=== PATIENT | female | born 1985 | race African-American/Black ===

== ENCOUNTER → 2023-06-15 13:37 | Outpatient (AMB) | payer OTHER, SELFPAY ==
--- NOTE | 2023-06-15 14:16 | MHC.OFFWIV ---
Intake Intake Visit Reasons: EP, sore throat, congestion ([phone]) Intake Note: pt is here today for sore throat and congestion started sunday Patient Tobacco Use Status: Never used Tobacco Is last menstrual period known: Yes Patient : No Allergies No Known Allergies Allergy (Verified 06/15/23 14:28) Do you need a note to return to daycare/school/sports/work: Yes HPI HPI Comments History of Present Illness Details Patient is a 37yo F who presents to office with cough She said ongoing for a few days Minimal congestion without sinus pressure + chills/sweats without fever No ear pain + ST and cough No CP Has been using inhaler without relief + exposure to covid at work; she is a [employer] COVID tests have been negative at home [facility] Social History (System 06/13/23 @ 15:20 by Deepali Escalera) Patient Tobacco Use Status: Never used Tobacco Review of Systems Const Denies body aches, Reports chills, Reports fatigue, Denies fever(s) and Denies headache(s) ENT Denies dizziness, Denies otalgia, Denies headache(s), Reports nasal congestion, Denies sinus pain, Denies sinus pressure and Reports sore throat Card Denies chest pain Resp Denies chest congestion, Reports cough, Denies hemoptysis and Denies excessive phlegm production GI Denies abdominal pain Neuro Denies confusion, Denies dizziness and Denies headache(s) Psych Denies confusion Endo Reports fatigue Physical Exam Vital Signs: General: Non-toxic, NAD. Speaking full sentences. Skin: Warm dry throughout Eye: EOMI HENT: Airway patent. Uvula midline. No pharyngeal erythema or edema. 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 +clear rhinorrhea Bilateral canals clear. TM non-erythematous, non-bulging. No TM perforation or hemotympanum noted. Respiratory: CTA bilaterally. No wheezes, rales or rhonchi Cardiac: RRR. No murmur MSK: Full ROM extremities. Neurology: A/O. No aphasia or facial droop. Gait without abnormality Psych: Good mood and affect Const General: No confusion Orientation/consciousness: No confusion Neuro General: No confusion Results AMB Rapid Strep AMB Rapid Strep Negative Last Edit by Bette Samaniego CMA on 06/15/23 14:46 Results Reviewed Results Reviewed: Laboratory Last Values Strep Scn Rapid Clinic Negative 06/15/23 14:45 Assessment & Plan Assessment & Plan (1) Upper respiratory infection: Code(s): J06.9 - Acute upper respiratory infection, unspecified Qualifiers: URI type: unspecified viral URI Qualified Code(s): J06.9 - Acute upper respiratory infection, unspecified Plan: Patient seen and evaluated. Lungs CTAStrep negative COVID/Flu/RSV ordered and obtained She will trial prednisne and tessalon She is aware of prednisone side effects; take with food avoiding nsaids and alcohol Tessalon for cough No return to work until covid is resulted. Patient gave verbal understanding and had no additional questions or concerns at time of discharge All questions answered (2) Exposure to COVID-19 virus: Code(s): Z20.822 - Contact with and (suspected) exposure to COVID-19 Plan: if +, quarantine x 5 days and then mask wear for additional 5 days See plan above Orders: Orders SARS-CoV2/FLU/RSV 06/15/23 R09.89 - Other specified symptoms and signs involving the circulatory and respiratory systems AMB Rapid Strep Screen 06/15/23 Z13.9 - Encounter for screening, unspecified Medications: New prednisone 40 mg (2 x 20 mg) PO DAILY 8 tabs 0RF J06.9 - Acute upper respiratory infection, unspecified benzonatate 100 mg PO BID-TID PRN 14 caps 0RF cough Coding Level of Care Code Est Pt Level 3 (46925) Diagnoses Viral upper respiratory tract infection J06.9 URI type: unspecified viral URI Exposure to COVID-19 virus Z20.822
== END ==
PROVIDERS: Visit Provider Physician Assistant
DX: J02.9 Acute pharyngitis, unspecified (principal)
CPT/HCPCS: 87880; 99213

== ENCOUNTER 2023-06-15 16:02 | Outpatient (REF) | payer OTHER, SELFPAY | END 2023-06-15 16:03 | disposition home or self-care (01) | LOC: HO.HMGCLNP 16:02 | PROVIDERS: Visit Provider Physician Assistant | DX: R09.89 Other specified symptoms and signs involving the circulatory and respiratory systems (principal); Z11.52 Encounter for screening for COVID-19; Z20.828 Contact with and (suspected) exposure to other viral communicable diseases | CPT/HCPCS: 0241U ==

== ENCOUNTER 2023-08-29 14:32 | Outpatient (AMB) | payer OTHER, SELFPAY ==
[2023-08-29 14:40] VITALS: BP 120/74; PULSE 97; TEMP 36.9; O2SAT 98; BMI 44.1
--- NOTE | 2023-08-29 14:40 | AM.OFFWIN_ITS ---
Intake Vital Signs 08/29/23 14:40 Height 5 ft 1 in Weight 233 lb 4 oz BMI 44.1 BP 120/74 Blood Pressure Location Rt brachial Position Sitting Pulse 97 Pulse Source Pulse Oximeter Temp 98.4 F Temp Source Oral Pulse Oximetry (%) 98 Oxygen Delivery Method Room Air Intake Visit Reasons: EP Congestion, Cough Intake Note: pt is wheezing pt says this started august 09 pt works around [employer] and has had RSV she is coughing and congested with a lot of chest congestion and she has a lot of mucus and she has a lot SOB Patient Tobacco Use Status: Never used Tobacco Allergies ibuprofen Allergy (Intermediate, Verified 08/29/23 14:44) Difficulty Breathing NSAIDS (Non-Steroidal Anti-Inflamma Allergy (Intermediate, Verified 08/29/23 14:44) Anaphylaxis Do you need a note to return to daycare/school/sports/work: Yes HPI HPI Comments History of Present Illness Details 37 y/o female patient who presents to [facility] in clinic with c/o cough, chest congestion, SOB, wheezing and chest congestion x 2 weeks now. She was diagnosed with RSV and Influenza in Jul and August. She has been on Prednisone with good relief. She has h/o Asthma and currently uses Albuterol inhaler. [facility] Social History (System 06/13/23 @ 15:20 by Deepali Escalera) Patient Tobacco Use Status: Never used Tobacco Review of Systems Const All systems reviewed & are unremarkable except as noted in HPI and below Physical Exam Vital Signs: Last Vital Signs Temp 98.4 F 08/29/23 14:40 Pulse 97 08/29/23 14:40 BP 120/74 08/29/23 14:40 Pulse Ox 98 08/29/23 14:40 Oxygen Delivery Method Room Air 08/29/23 14:40 BMI result Body Mass Index 44.1 Const General: no acute distress; No comfortable Nutritional Appearance: obese Orientation/consciousness: patient oriented x3 HEENT Head: Yes normocephalic Ears: external ears normal and TM's normal bilaterally General nose exam: Abnormal mucous membranes and turbinates present boggy and erythematous Resp Effort & Inspection: normal respiratory effort and able to speak in complete sentences Auscultation: no crackles, no rales, rhonchi throughout and wheezes scattered wheezes Cardio Rate: regular rate Rhythm: regular rhythm Neuro General: patient oriented x3 Office Procedures Nebulizer Treatment Nebulizer Treatment [id number] RX initial, or Nebulizer Subsequent Treatment Office Meds ipratropium 0.5 mg-albuterol 3 mg (2.5 mg base)/3 mL nebulization soln Performing Provider: Selina Hall NP Performing Location: [facility] Administered by: Selina Hall NP on 08/29/23 15:04 Dose Route Admin Location Dispensed Lot Number Expiration Date NDC [place] 3 mL inhalation 3 mL [id number] 03/11/24 1282-9480-29 [facility] Assessment & Plan Assessment & Plan (1) Upper respiratory infection: Code(s): J06.9 - Acute upper respiratory infection, unspecified Qualifiers: URI type: unspecified viral URI Qualified Code(s): J06.9 - Acute upper respiratory infection, unspecified Plan: - Started her on Symbicort Inhaler today. - Prednisone - Abx - Pt will need to f/u with PCP for Asthma control (2) Asthma with acute exacerbation: Code(s): J45.901 - Unspecified asthma with (acute) exacerbation Qualifiers: Asthma persistence: persistent Asthma severity: moderate Qualified Code(s): J45.41 - Moderate persistent asthma with (acute) exacerbation Plan: - Started her on Symbicort Inhaler today. - Prednisone - Abx - Pt will need to f/u with PCP for Asthma control Plan - Started her on Symbicort Inhaler today. - Prednisone - Abx - Pt will need to f/u with PCP for Asthma control Orders: Orders AMB Nebulizer Treatment Today J06.9 - Acute upper respiratory infection, unspecified, J45.901 - Unspecified asthma with (acute) exacerbation Medications: New amoxicillin 500 mg PO BID 5 days 10 caps 0RF prednisone 50 mg PO DAILY 5 days 5 tabs 0RF budesonide-formoterol 80-4.5 mcg/actuation (Symbicort) 2 puffs inhalation BID 10.2 grams 1RF J45.901 - Unspecified asthma with (acute) exacerbation azithromycin 500 mg PO DAILY 3 days 3 tabs 0RF montelukast 10 mg PO BEDTIME 60 tabs 0RF J45.901 - Unspecified asthma with (acute) exacerbation Coding Level of Care Code Est Pt Level 3 (63898) Diagnoses Viral upper respiratory tract infection J06.9 URI type: unspecified viral URI Moderate persistent asthma with acute exacerbation J45.41 Asthma persistence: persistent Asthma severity: moderate CPT Codes Nebulizer Treatment - Nebulizer Treatment, initial or subsequent: 28737- Nebulizer/MDI RX initial, or Nebulizer Subsequent Treatment ([id number]) Time Spent (min) 15
== END 2023-08-29 15:28 | disposition home or self-care (01) ==
PROVIDERS: Visit Provider Nurse Practitioner Family
DX: J06.9 Acute upper respiratory infection, unspecified (principal); J45.901 Unspecified asthma with (acute) exacerbation; J45.41 Moderate persistent asthma with (acute) exacerbation
CPT/HCPCS: 94640; 99213; J7620